=== PATIENT | female | born 1970 | race Caucasian/White ===

== ENCOUNTER 2016-12-30 15:12 | Emergency (ER) | payer SELFPAY ==
[2016-12-30 15:40] LABS: Bilirubin Negative (Negative); Blood, Urine Trace (Negative); Clarity Cloudy (Clear); Glucose, Urine (Dipstick) Negative (Negative); Leukocyte Large (Negative); Nitrite Negative (Negative); Protein, Urine (Dipstick) Negative (Neg-Trace); Urobilinogen 0.2 mg/dL (0.2-1.0)
[2016-12-30 15:41] LABS: Bacteria/HPF 1+ HPF (None Seen); Other Microscopic Description C&S SEET UP; WBC/HPF 21-50 HPF (0-3)
[2016-12-30] MEDS ORDERED: Sulfameth/Trimethoprim DS 800-160mg TAB ONE (15:50)
== END 2016-12-30 15:55 | disposition home or self-care (01) ==
LOC: BURERS 15:12
DX: N30.01 Acute cystitis with hematuria (principal); F17.210 Nicotine dependence, cigarettes, uncomplicated
CPT/HCPCS: 81003; 81015; 87086; 99283

== ENCOUNTER 2018-04-27 16:54 | Emergency (ER) | payer SELFPAY ==
[2018-04-27] MEDS ORDERED: predniSONE 20 MG TAB ONE (18:14)
--- NOTE | 2018-04-27 20:24 | RAD ---
LEFT WRIST THREE VIEWS: 04/27/18 No fracture was seen. The carpal relationships are normal. There is probably the beginnings of some j oint space narrowing and spurring in the first carpometacarpal joint, but it is not overly dramatic. IMPRESSION: No acute findings. POS: HOME
== END 2018-04-27 18:18 | disposition home or self-care (01) ==
LOC: BURERS 16:54
DX: M77.9 Enthesopathy, unspecified (principal); F17.210 Nicotine dependence, cigarettes, uncomplicated
CPT/HCPCS: J7506

== ENCOUNTER → 2020-03-10 | Emergency (ER) | payer OTHER, SELFPAY ==
[~2020-03-10] MED LIST: Acetaminophen 500 MG TAB ONE; Ondansetron ODT 4 MG TAB ONE
[2020-03-11 16:13] LABS: SARS-CoV-2 MS2 Positive; SARS-CoV-2 N Gene Positive; SARS-CoV-2 S Gene Positive; SARS-CoV-2 orf1ab Positive
== END ==
LOC: BURERS 16:34
DX: U07.1 COVID-19 (principal); B34.9 Viral infection, unspecified; F17.210 Nicotine dependence, cigarettes, uncomplicated; R11.2 Nausea with vomiting, unspecified; R06.02 Shortness of breath
CPT/HCPCS: 87635; 99283; Q0162; U0003